=== PATIENT | male | born 1955 | race African-American/Black ===

== ENCOUNTER 2025-09-16 15:47 | Inpatient (IN) | payer MEDICARE, MEDICAID ==
[~2025-09-16] VITALS: Ht 205.7 cm; Wt 114.3 kg
[2025-09-16 15:50] VITALS: O2SAT 99
[2025-09-16 16:32] LABS: BASOPHILS % 0.3 % (0.0-2.0); EOSINOPHILS % 0.1 % (0.0-5.0); HEMATOCRIT. 33.9 % (42.0-52.0); HEMOGLOBIN. 11.2 g/dL (14.0-18.0); LYMPHOCYTES % 8.0 % (20.0-50.0); MEAN PLATELET VOLUME 7.8 fl (7.4-10.4); MONOCYTES % 4.0 % (2.0-8.0); NEUTROPHILS % 87.6 % (40.0-76.0); PLATELET 217 x1000/uL (130-400); RED BLOOD CELL COUNT 3.79 mill/uL (4.7-6.1); RED CELL DISTRIBUTION WIDTH 15.5 % (11.6-14.6)
[2025-09-16 16:49] LABS: CREATININE 1.0 mg/dL (0.6-1.3); TROPONIN I HIGH SENSITIVITY 29 ng/L (3.0-53)
[2025-09-16 16:50] LABS: PROTEIN TOTAL 6.9 g/dL (6.0-8.3); UREA NITROGEN BLOOD 24 mg/dL (9-23)
[2025-09-16 16:51] LABS: ASPARTATE AMINOTRANSFERASE 47 IU/L (<34)
[2025-09-16 16:52] LABS: BILIRUBIN DIRECT 0.4 mg/dL (<=3.0); BILIRUBIN TOTAL 1.1 mg/dL (0.1-1.0)
[2025-09-16] MEDS ORDERED: DEXTROSE 50% WATER 50ML SYRINGE IV PRN ×2 (17:15→20:45)
[2025-09-16] MEDS ORDERED: ONDANSETRON HCL 4MG/2ML INJ IV ONE (18:00)
[2025-09-16] MEDS: ONDANSETRON HCL 4MG/2ML INJ IV NR (19:59)
[2025-09-16] MEDS: SODIUM CHLORIDE 0.9% 1,000 ML IV ONE (19:59)
[2025-09-16] MEDS ORDERED: ACETAMINOPHEN 325MG TABLET PO PRN ×2 (20:30)
[2025-09-16] MEDS ORDERED: DOCUSATE SODIUM 100MG CAPSULE PO PRN (20:30)
[2025-09-16] MEDS ORDERED: GUAIFENESIN 200MG/10ML SUGAR FREE UDC PO PRN (20:30)
[2025-09-16] MEDS ORDERED: CLONIDINE 0.1MG TABLET PO PRN (20:30)
[2025-09-16] MEDS ORDERED: IPRATROPIUM/ALBUTEROL 0.5-3(2.5)MG/3ML NEB HHN PRN (20:30)
[2025-09-16] MEDS ORDERED: ONDANSETRON HCL 4MG/2ML INJ IV PRN (20:30)
[2025-09-16 20:51] LABS: TROPONIN I HIGH SENSITIVITY 30 ng/L (3.0-53)
[2025-09-16 20:54] LABS: CLARITY URINE CLEAR (CLEAR); COLOR URINE YELLOW (YELLOW); GLUCOSE URINE NEGATIVE (NEGATIVE); KETONES URINE TRACE (NEGATIVE); LEUKOCYTE ESTERASE URINE TRACE (NEGATIVE); NITRITE URINE NEGATIVE (NEGATIVE); OCCULT BLOOD URINE TRACE (NEGATIVE); PH URINE 7.0 (4.5-8.0); PROTEIN URINE 2+ (NEGATIVE); SPECIFIC GRAVITY URINE 1.025 (1.005-1.030); UROBILINOGEN URINE 4.0 E.U./dL (0.2-1.0)
[2025-09-16 21:03] LABS: *AMPHETAMINES SCREEN URINE NEGATIVE (NEGATIVE); *BARBITURATES SCREEN URINE NEGATIVE (NEGATIVE); *BENZODIAZEPINES SCREEN URINE NEGATIVE (NEGATIVE); *COCAINE SCREEN URINE NEGATIVE (NEGATIVE); METHADONE URINE SCREEN NEGATIVE (NEGATIVE); OPIATES URINE SCREEN NEGATIVE (NEGATIVE)
[2025-09-16 21:04] LABS: CANNABINOID URINE SCREEN PRESUMPTIVE POSITIVE (NEGATIVE); ECSTASY MDMA SCREEN URINE NEGATIVE (NEGATIVE); PHENCYCLIDINE URINE SCREEN NEGATIVE (NEGATIVE)
[2025-09-16 21:08] LABS: BACTERIA URINE 1+; RBC URINE 0-2 /hpf (0-2); SQUAMOUS EPITHELIAL CELL URINE FEW /lpf (RARE/1+); WBC URINE 0-2 /hpf (0-2)
[2025-09-16 21:53] LABS: INR 1.0
[2025-09-16] MEDS: CEFTRIAXONE 1GM/50ML 50 ML IV SCH (22:05)
[2025-09-16] MEDS: ENOXAPARIN 120MG/0.8ML SYR SUBCUT SCH (22:06)
[2025-09-16] MEDS: DEXT 5%/0.45% NACL 1000ML 1,000 ML IV SCH (22:06)
[2025-09-16 22:21] LABS: PHOSPHORUS 3.1 mg/dL (2.5-4.9)
[2025-09-16] MEDS: PANTOPRAZOLE SODIUM 40 MG/VIAL IV SCH (22:58)
[2025-09-17 01:02] LABS: PROTEIN TOTAL 6.3 g/dL (6.0-8.3)
[2025-09-17 01:03] LABS: TROPONIN I HIGH SENSITIVITY 33 ng/L (3.0-53)
[2025-09-17 01:04] LABS: ASPARTATE AMINOTRANSFERASE 41 IU/L (<34); BILIRUBIN DIRECT 0.4 mg/dL (<=3.0); BILIRUBIN TOTAL 0.9 mg/dL (0.1-1.0)
[2025-09-17 03:00] VITALS: BP 117/54; PULSE 66; RESP 18; TEMP 36.974
[2025-09-17] MEDS: BLOOD SUGAR DIAGNOSTIC STRIP TEST SCH ×2 (06:30→21:04)
[2025-09-17] MEDS: DEXTROSE 50% WATER 50ML SYRINGE IV NR (06:42)
[2025-09-17] MEDS ORDERED: APIX2.5T MT (07:54)
[2025-09-17] MEDS ORDERED: GABA-529 MT (07:54)
[2025-09-17 08:00] VITALS: BP 131/80; PULSE 73; RESP 18; TEMP 35.9; O2SAT 98
[2025-09-17] MEDS: MAGNESIUM 2 G PREMIX 50 ML IV NR (08:01)
[2025-09-17] MEDS: ENOXAPARIN 120MG/0.8ML SYR SUBCUT SCH (09:34)
[2025-09-17] MEDS: AMLODIPINE 5MG TABLET PO SCH (09:37)
[2025-09-17 10:49] LABS: BASOPHILS % 1.0 % (0.0-2.0); EOSINOPHILS % 1.0 % (0.0-5.0); HEMATOCRIT. 31.4 % (42.0-52.0); HEMOGLOBIN. 10.5 g/dL (14.0-18.0); LYMPHOCYTES % 19.3 % (20.0-50.0); MEAN PLATELET VOLUME 8.5 fl (7.4-10.4); MONOCYTES % 6.4 % (2.0-8.0); NEUTROPHILS % 72.3 % (40.0-76.0); PLATELET 203 x1000/uL (130-400); RED BLOOD CELL COUNT 3.50 mill/uL (4.7-6.1); RED CELL DISTRIBUTION WIDTH 15.7 % (11.6-14.6)
[2025-09-17 11:08] LABS: CREATININE 1.0 mg/dL (0.6-1.3)
[2025-09-17 11:09] LABS: LDL CHOLESTEROL 30 mg/dL (5-100); TRIGLYCERIDE 72 mg/dL (0-150); TROPONIN I HIGH SENSITIVITY 25 ng/L (3.0-53); UREA NITROGEN BLOOD 15 mg/dL (9-23)
[2025-09-17 11:10] LABS: PHOSPHORUS 2.6 mg/dL (2.5-4.9)
[2025-09-17 11:14] LABS: T4 FREE 1.23 ng/dL (0.89-1.76)
[2025-09-17 16:00] VITALS: BP 127/80; PULSE 74; RESP 18; TEMP 36.5; O2SAT 98
[2025-09-17 20:00] VITALS: BP 138/74; PULSE 66; RESP 18; TEMP 36.4; O2SAT 95
[2025-09-17] MEDS ORDERED: DEXTROSE 50% WATER 50ML SYRINGE IV PRN (20:45)
[2025-09-17] MEDS: INSULIN LISPRO 100 UNITS/ML SUBCUT SCH (21:04)
[2025-09-17] MEDS: CEFTRIAXONE 1GM/50ML 50 ML IV SCH (22:40)
[2025-09-18] VITALS: BP 143/78; PULSE 70; RESP 18; TEMP 36.9; O2SAT 98
[2025-09-18 04:00] VITALS: BP 145/80; PULSE 68; RESP 18; TEMP 36.7; O2SAT 97
[2025-09-18 08:00] VITALS: BP 171/89; PULSE 89; RESP 18; TEMP 36.9; O2SAT 96
[2025-09-18] MEDS: ENOXAPARIN 80MG/0.8ML SYR SUBCUT SCH (08:40)
[2025-09-18] MEDS: HYDRALAZINE 20MG/ML VIAL IV PRN (08:41)
[2025-09-18 12:00] VITALS: BP 125/78; PULSE 80; RESP 18; TEMP 36.7; O2SAT 98
[2025-09-18] MEDS: LOSARTAN 25 MG TABLET PO SCH (13:30)
[2025-09-18 16:00] VITALS: BP 159/79; PULSE 74; RESP 18; TEMP 37.3; O2SAT 100
[2025-09-18 20:00] VITALS: BP 137/68; PULSE 78; RESP 18; TEMP 36.6; O2SAT 98
[2025-09-19] VITALS: BP 144/71; PULSE 65; RESP 17; TEMP 36.8; O2SAT 95
[2025-09-19 04:00] VITALS: BP 115/64; PULSE 75; RESP 18; TEMP 36.4; O2SAT 97
[2025-09-19 13:30] VITALS: BP 144/68; PULSE 68; RESP 18; TEMP 97.7
== END 2025-09-19 14:45 | disposition home health service (06) | DRG 638 ==
LOC: ER 15:47 → 8WST 18:10 → EDBEDREQ 18:21 → EDBEDREQTM 18:21 → EDBEDREQSVC 18:21 → ENRESERV 09-17 01:17
PROVIDERS: ADMIT Hospitalist; ATTEND Hospitalist
DX: E11.649 Type 2 diabetes mellitus with hypoglycemia without coma (principal); K56.7 Ileus, unspecified; D64.9 Anemia, unspecified; E86.0 Dehydration; I48.0 Paroxysmal atrial fibrillation; E78.5 Hyperlipidemia, unspecified; E11.40 Type 2 diabetes mellitus with diabetic neuropathy, unspecified; N12 Tubulo-interstitial nephritis, not specified as acute or chronic; Z79.01 Long term (current) use of anticoagulants; I10 Essential (primary) hypertension; K52.9 Noninfective gastroenteritis and colitis, unspecified; K40.20 Bilateral inguinal hernia, without obstruction or gangrene, not specified as recurrent; I44.0 Atrioventricular block, first degree; K57.30 Diverticulosis of large intestine without perforation or abscess without bleeding; Z79.899 Other long term (current) drug therapy; Z87.891 Personal history of nicotine dependence
CPT/HCPCS: 36415; 71045; 74176; 80048; 80061; 80076; 80305; 80320; 81003; 82550; 82728; 82962; 83036; 83540; 83550; 83605; 83735; 83880; 83930; 84100; 84145; 84439; 84443; 84484; 85025; 85044; 86850; 86900; 93005; 93306; 93970; 97162; 97165; 99285; J0360; J0696; J1650; J1815; J2405; J2470; J3475; J7030; G0480